=== PATIENT | female | born 1990 | race Caucasian/White ===

== ENCOUNTER 2017-03-08 01:57 | Emergency (ER) | payer BC, OTHER ==
[2017-03-08 02:11] VITALS: BP 122/75
--- NOTE | 2017-03-08 02:20 | ERNOTE ---
ENT HPI Time Seen by Provider: 03/08/17 02:16 Source: patient Exam Limitations: no limitations - Immun/Allergies/Home Medications Immunizations: IMMUNIZATION HX Immunizations Up to Date Yes Allergies/Adverse Reactions: Allergies Allergy/AdvReac Type Severity Reaction Status Date / Time Sulfa (Sulfonamide Allergy Verified 03/08/17 02:10 Antibiotics) [Sulfa(Sulfonamide Antibiotics)] Home Medications: HOME MEDICATIONS Ibuprofen [Motrin] 800 mg PO TID PRN #30 tablet 03/08/17 [Last Taken Unknown] Penicillin V Potassium [Pen-Vee K] 500 mg PO QID #40 tab 03/08/17 [Last Taken Unknown] - History of Present Illness Narrative: Patient has had a fractured tooth for 7 days. Patient has not taken the liberty to go see a dentist for this. Patient presents tonight for toothache and she wants a note for off work. Review of Systems - Review of Systems Constitutional: Present: no symptoms reported EYE: Present: no symptoms reported ENT: Present: See HPI Respiratory: Present: no symptoms reported Cardiology: Present: no symptoms reported Gastrointestinal/Abdominal: Present: no symptoms reported Genitourinary: Present: no symptoms reported - Patient's Past Medical History Patient History - Cardiac/Respiratory: No pertinent hx Patient History - Cancer: No Hx of Cancer Patient History - Surgical Procedures: No surgical history - Social History Living Situations: home Smoking Status: Current every day smoker Patient requests Smoking Cessation Consult: No Initiate information on Smoking Cessation: No Alcohol Use: occasionally Drug Use: none - Immunizations Immunizations Up to Date: Yes Physical Exam - Physical Exam General Appearance: Present: wd/wn, alert, no apparent distress Ears, Nose, Throat: Present: normal pharynx, other - patient does have very poor dentition she does have fracture of tooth #1 with 8 eroded down to below the gingival margin there is some surrounding gingival inflammation. Neck: Present: normal inspection Respiratory: Present: no respiratory distress, normal breath sounds Cardiovascular/Chest: Present: regular rate, rhythm, no murmur, normal peripheral pulses ED Progress - Vital Signs Patient's Vital Signs:: I have reviewed the patient's vital signs. Vital Signs: Vital Signs 03/08/17 03/08/17 01:57 02:06 Temperature 36.7 C Pulse Rate 88 Respiratory 18 Rate Blood Pressure 113/79 122/75 O2 Sat by Pulse 97 Oximetry - Progress/Reassessment Chief Complaint: Dental Problem Plan - Plan Plan: This patient has a fractured tooth and poor dentition, she needs the assistance of the dentist. I have powered and urged the patient to follow up with a dentist as soon as possible Departure Clinical Impression: Pain, dental - Departure Condition: Stable Instructions: Dental Caries, Dental Care and Dentist Visits Prescriptions: Ibuprofen [Motrin] 800 mg PO TID PRN #30 tablet PRN Reason: Pain Penicillin V Potassium [Pen-Vee K] 500 mg PO QID #40 tab
[2017-03-08] MEDS ORDERED: KETOROLAC TROMETHAMINE 60 MG/2 ML VIAL IM ONE ×2 (02:21→02:23)
[2017-03-08] MEDS ORDERED: PENICILLIN V POTASSIUM 250 MG TABLET PO STA (02:22)
[2017-03-08] MEDS ORDERED: PENICILLIN V POTASSIUM 250 MG TABLET ONE (02:23)
--- OUTSIDE RECORDS SUMMARY | 2017-03-08 03:31 | XMS REPORT | Continuity of Care Document ---
:1990 Author Organization [facility] ([facility]) Address [address] [place] [address] Phone [phone] Care Team Providers Name Role Phone Unavailable Primary Care Provider Unavailable Source Comments This disclosure is being made pursuant to the Care Everywhere program, applicable federal and state laws, and may not contain all informaitonavailable regarding this patient.[facility] ([facility]) Active Allergies and Adverse Reactions Not on File Current Medications Not on file Active Problems Not on file Social History Tobacco Use Types Packs/Day Years Used Date Never Assessed Plan of Care Health Maintenance Due Date Last Done Comments Hepatitis B Vaccine (1 of 3 - Primary Series) 1988 Tdap Vaccine 1999 Cervical Cancer Screening 2006 Lipid Disorder Screening 2006 MMR Vaccine 2006 Td Vaccine 2006 Varicella Vaccine (1 of 2 - Adult - No Evidence of 2006 Immunity) Influenza Vaccine: Seasonal (#1) 05/25/2016 Results from Last 3 Months Not on file
== END 2017-03-08 02:35 | disposition home or self-care (01) ==
LOC: ER 01:57
DX: K08.89 Other specified disorders of teeth and supporting structures (principal)

== ENCOUNTER 2018-07-21 00:01 | Inpatient (IN) ==
[2018-07-21] MEDS ORDERED: DEXTROSE 5%-LACTATED RINGERS 1,000 ML IV PRN (00:05)
[2018-07-21] MEDS ORDERED: OXYTOCIN/DEXTROSE 5%-WATER 30 UNITS/500 ML BAG IV ONE ×2 (00:05→18:07)
[2018-07-21] MEDS ORDERED: ONDANSETRON HCL/PF 2 MG/ML VIAL IV PRN ×2 (00:05→14:42)
[2018-07-21] MEDS ORDERED: RINGER'S SOLUTION,LACTATED 1,000 ML IV ONE (00:05)
[2018-07-21] MEDS ORDERED: MISOPROSTOL 100 MCG TABLET VG PRN (00:05)
[2018-07-21 02:36] LABS: Cocaine Ur Negative (NEGATIVE); Urine Barbiturate Negative (NEGATIVE); Urine Benzodiazepines Negative (NEGATIVE); Urine Opiates Negative (NEGATIVE); Urine PCP Negative (NEGATIVE); Urine THC Negative (NEGATIVE)
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
--- NOTE | 2018-07-21 09:03 | PN ---
Progess Note - Interim Date: 07/21/18 Time: 09:01 Narrative: 07/21/18 09:01 Patient planning on going natural Vital signs stable. Pitocin at 12 mu/min. FHT: 135 baseline, reassuring Contractions q 2-3 min Cervix: 2/75/0 Impression: Intrauterine at 39 2/7 weeks elective induction of labor Plan: Continue present plan
--- NOTE | 2018-07-21 12:04 | PN ---
Progess Note - Interim Date: 07/21/18 Time: 12:03 Narrative: 07/21/18 12:03 AROM clear fluid Cvx 2/75/0 FHT reassuring Continue induction of labor
[2018-07-21] MEDS ORDERED: NALOXONE HCL 1 MG/1 ML SYRG IV PRN (14:42)
[2018-07-21] MEDS ORDERED: BUPIVACAINE HCL/0.9 % NACL/PF 250 ML EP PRN (14:42)
[2018-07-21] MEDS ORDERED: BUPIVACAINE HCL/PF 30 ML VIAL EP SCH (14:45)
--- NOTE | 2018-07-21 14:54 | ANES ---
Anesthesia Pre Procedure Eval Vitals/Labs: Last Vital Signs Temp 36.5 C 07/21/18 05:28 Pulse 83 07/21/18 05:28 Resp 16 07/21/18 05:28 BP 107/68 07/21/18 05:28 Pulse Ox 98 07/21/18 05:28 HOME MEDICATIONS acetaminophen 325 mg tablet 650 mg PO Q6H PRN tab 04/24/18 [Last Taken Unknown] vitamin-ferrous fumarate 28 mg iron-folic acid 800 mcg tablet 1 tab PO DAILY 04/24/18 [Last Taken Unknown] ferrous sulfate 325 mg (65 mg iron) tablet 325 mg PO DAILY tab 05/31/18 [Last Taken Unknown] Allergies/Adverse Reactions: Allergies Allergy/AdvReac Type Severity Reaction Status Date / Time Sulfa (Sulfonamide Allergy Severe swelling Verified 07/21/18 00:11 Antibiotics) [Sulfa(Sulfonamide Antibiotics)] - Planned Procedure Planned Procedure: Labor epidural Medication List Reviewed:: Yes Allergies Verified: Yes Medical History (Last Reviewed 07/21/18 @ 10:02 by Oscar Berumen DO) Anxiety Onset Date: Unknown Depression Onset Date: Unknown Abnormal Pap smear of cervix Onset Date: Unknown Carpal tunnel syndrome of right wrist Onset Date: Unknown Contusion of rib on right side Onset Date: 04/13/17 Elective Onset Date: ~2009 Fracture closed, carpal bone Onset Date: ~1999 Hernia Onset Date: Unknown Surgical History (Last Reviewed 07/21/18 @ 10:02 by Oscar Berumen DO) H/O reduction of closed fracture Onset Date: Unknown H/O umbilical hernia repair Onset Date: Unknown History of placement of ear tubes Onset Date: Unknown Hx of tonsillectomy Onset Date: Unknown S/P wrist surgery Onset Date: Unknown [place] teeth extracted Onset Date: ~2008 Family History (Last Reviewed 07/21/18 @ 10:02 by Oscar Berumen DO) Aunt Breast cancer Daughter Alive and well Father No known health problems Grandfather Suicide Grandfather Unknown cause of morbidity or mortality Grandmother Breast cancer Diabetes Grandmother Cancer Mother Hypertension Sister Anxiety Depression Uncle Diabetes Heart disease Hypertension Myocardial infarction Hyperlipemia - Anesthesia Assessment and Plan ASA Class: PS, II Anesthesia Type Plan: Epidural
--- NOTE | 2018-07-21 15:11 | ANES ---
Post Anesthesia Assessment - Vital Signs Vitals: Last Vital Signs Temp 36.8 C 07/21/18 15:08 Pulse 85 07/21/18 15:08 Resp 18 07/21/18 15:08 BP 132/83 07/21/18 15:08 Pulse Ox 99 07/21/18 15:08 Airway Patency: Normal - Mental Status Level Of Consciousness: Awake - N/V Assessment Nausea/Vomiting Presence: None Dehydration:: No
--- NOTE | 2018-07-21 15:11 | ANES ---
Anesthesia Procedure Note Procedure Note: ANESTHESIA PROCEDURE NOTE Date of Procedure: 07/21/2018. Time of procedure: 1500. Performed by: Reynaldo Shaw CRNA Fork Truck Driver: None. Preprocedure diagnosis: Active labor. Post procedure diagnosis: Same. Procedure: Insertion of labor epidural. Indications: The patient is a 27 -year-old female in active labor requesting labor epidural for pain management. Findings: See below. Details of the procedure: The patient was placed in a sitting position. DuraPrep as well as Betadine swabs X3 was applied to the patient's back. Patient was then draped in a sterile fashion. Lidocaine 1% was infiltrated to the skin and subcutaneous tissues at the level of the L3-4 interspace. The epidural space was identified using a 18-gauge Tuohy needle with loss-of- resistance technique. Epidural catheter was inserted to a depth of 10 centimeters at skin. Negative test dose was elicited using 3 mL of 1.5% preservative-free lidocaine plus epinephrine 1 200,000. The epidural catheter was then taped and secured in place. A loading dose of 8 mL of 0.25% preservative-free bupivacaine was administered to the epidural catheter after negative aspiration for blood and CSF. EBL: Minimal. Fluids: N/A. Specimen: N/A. Post procedure condition: The patient tolerated the procedure well. No complications were noted. Thank you for this consultation. Reynaldo Shaw CRNA
[2018-07-21] MEDS ORDERED: BISACODYL 10 MG SUPP.RECT RC PRN (18:07)
[2018-07-21] MEDS ORDERED: oxyCODONE HCL/ACETAMINOPHEN 1 TAB TABLET PO PRN ×2 (18:07)
[2018-07-21] MEDS ORDERED: BENZOCAINE/MENTHOL 81 SPRAY CAN TP PRN (18:07)
[2018-07-21] MEDS ORDERED: SENNOSIDES 8.6 MG TABLET PO PRN (18:07)
[2018-07-21] MEDS ORDERED: HYDROCORTISONE 30 APPL TUBE TP PRN (18:07)
[2018-07-21] MEDS ORDERED: GLYCERIN/WITCH HAZEL LEAF 40 APPL BOX TP PRN (18:07)
--- NOTE | 2018-07-21 18:10 | OR ---
Operative Report - Dictated Report Narrative: Spontaneous vaginal delivery of viable female at 1749 on 07/21/2018 with Apgars 8 and 9, weighing 2783 g in SANDRA position with tight nuchal cord 1. Cord clamping delayed approximately 1 minute Placenta delivered complete, intact, with three vessel cord Estimated blood loss: less than 50 ml Anesthesia: epidural Lacerations: None History for MU Definition: * The number of deliveries resulting in a live the patient experienced prior to current hospitalization * The previous delivery of live twins or any live multiple gestation is considered one live event. *If primagravida or nulliparous is documented select zero for the number of previous live births. Live Events: 1
[2018-07-21] MEDS: DOCUSATE SODIUM 100 MG CAPSULE PO SCH (21:48)
[2018-07-21] MEDS: FERROUS SULFATE 325 MG TABLET PO SCH (21:50)
[2018-07-22] MEDS: IBUPROFEN 800 MG TABLET PO PRN ×4 (02:44→23:31)
[2018-07-22] MEDS: FERROUS SULFATE 325 MG TABLET PO SCH (08:40)
[2018-07-22] MEDS: DOCUSATE SODIUM 100 MG CAPSULE PO SCH ×2 (08:40→21:40)
[2018-07-22] MEDS: PRENATAL VITS96/IRON FUM/FOLIC 1 TAB TABLET PO SCH (08:40)
--- NOTE | 2018-07-22 11:52 | PN ---
Subjective - Date and Time Seen Date: 07/22/18 Time: 11:49 Objective - Vitals Vitals: Last Vital Signs Temp 36.9 C 07/22/18 08:00 Pulse 89 07/22/18 08:00 Resp 18 07/22/18 08:00 BP 115/75 07/22/18 08:00 Pulse Ox 95 07/22/18 08:00 Patient denies complaints. Patient left hospital premise for short period time and came back in and was noted to have a funny odor on her clothing. She admitted to taking a hit off a joint and smoking a cigarette in the parking lot. Lochia wnl Abdomen - soft, nontender Uterus - firm, at umbilicus - 1 No calf tenderness Impression: day #1 - s/p spontaneous vaginal delivery. Tobacco and marijuana use. Plan: Continue routine care. Patient was counseled by me and by our OB transportation maintenance supervisor. UDS will be done on mother and baby and DHS notified if positive. Cauti Physician Documentation - Urinary Catheter Management Urethral ([place]) Date of Insertion: 07/21/18 Time of Insertion: 15:39 Assessment/Plan - Problems/Diagnosis (1) Elective induction of labor planned Problem: Acute
[2018-07-22 13:14] LABS: Cocaine Ur Negative (NEGATIVE); Urine Barbiturate Negative (NEGATIVE); Urine Benzodiazepines Negative (NEGATIVE); Urine Opiates Negative (NEGATIVE); Urine PCP Negative (NEGATIVE); Urine THC Positive (NEGATIVE)
[2018-07-23 09:46] VITALS: BP 132/72
--- NOTE | 2018-07-23 10:58 | PN ---
Subjective - Date and Time Seen Date: 07/23/18 Time: 10:56 Objective - Vitals Vitals: Last Vital Signs Temp 36.3 C 07/23/18 08:30 Pulse 74 07/23/18 08:30 Resp 20 07/23/18 08:30 BP 132/72 07/23/18 08:30 Pulse Ox 99 07/23/18 08:30 Patient denies complaints. Bottle feeding Lochia wnl Abdomen - soft, nontender Uterus - firm, at umbilicus - 2 No calf tenderness Impression: day #2 - s/p spontaneous vaginal delivery. Urine drug screen from yesterday positive. DHS seeing patient now. Plan: Routine discharge instructions. Follow-up with [facility] per their recommendations - Abnormal Lab Findings Abnormal Lab Findings: Abnormal Lab Results 07/22/18 Range/Units 12:45 Urine Marijuana (THC) Positive H (NEGATIVE) Cauti Physician Documentation - Urinary Catheter Management Urethral ([place]) Date of Insertion: 07/21/18 Time of Insertion: 15:39 Assessment/Plan - Problems/Diagnosis (1) Elective induction of labor planned Problem: Acute
[2018-07-23] MEDS: IBUPROFEN 800 MG TABLET PO PRN (11:16)
[2018-07-23] MEDS: FERROUS SULFATE 325 MG TABLET PO SCH (11:16)
[2018-07-23] MEDS: PRENATAL VITS96/IRON FUM/FOLIC 1 TAB TABLET PO SCH (11:17)
[2018-07-23] MEDS: DOCUSATE SODIUM 100 MG CAPSULE PO SCH (11:17)
== END 2018-07-23 14:15 | disposition home or self-care (01) | DRG 775 ==
LOC: OB 00:01
PROVIDERS: ADMIT Obstetrics & Gynecology; ATTEND Obstetrics & Gynecology
CPT/HCPCS: 59025; 80307; G0479

== ENCOUNTER 2020-03-20 09:38 | Inpatient (IN) ==
[2020-03-20] MEDS ORDERED: BUTORPHANOL TARTRATE 2 MG/ML VIAL IV PRN ×2 (09:41)
[2020-03-20] MEDS ORDERED: RINGER'S SOLUTION,LACTATED 1,000 ML IV PRN (09:41)
[2020-03-20] MEDS ORDERED: OXYTOCIN/DEXTROSE 5%-WATER 30 UNITS/500 ML BAG IV ONE ×2 (09:41→17:42)
[2020-03-20] MEDS ORDERED: ONDANSETRON 4 MG TAB.RAPDIS PO PRN (09:41)
[2020-03-20] MEDS ORDERED: RINGER'S SOLUTION,LACTATED 1,000 ML IV ONE (09:41)
[2020-03-20] MEDS ORDERED: LIDOCAINE HCL 50 ML VIAL PERI PRN (09:41)
[2020-03-20 10:29] LABS: Cocaine Ur Negative (NEGATIVE); Urine Barbiturate Negative (NEGATIVE); Urine Benzodiazepines Negative (NEGATIVE); Urine Opiates Negative (NEGATIVE); Urine PCP Negative (NEGATIVE); Urine THC Negative (NEGATIVE)
--- NOTE | 2020-03-20 11:39 | HP ---
Chief Complaint - Chief Complaint Date of Service: 03/20/20 Time of Service: 11:30 Chief Complaint: Labor induction History of Present Illness: 29 year old at 37w 0d who presented to the office today for an unscheduled visit due to decreased movement, a migraine and a lot of vaginal pressure. She denied vb or lof. Denied regular ctx. Medical History (Last Reviewed 03/20/20 @ 11:32 by Maryann Fernandez MD) Tobacco abuse (Chronic) Anemia affecting History of urinary tract infection Onset Date: Unknown Anxiety Onset Date: Unknown Depression Onset Date: Unknown has not been on meds for 3 years Abnormal Pap smear of cervix Onset Date: Unknown x 1 due to BV Carpal tunnel syndrome of right wrist Onset Date: Unknown Contusion of rib on right side Onset Date: 04/13/17 Elective Onset Date: ~2009 Fracture closed, carpal bone Onset Date: ~1999 left wrist Hernia Onset Date: Unknown at - umbilical Surgical History: Surgical History (Last Reviewed 03/20/20 @ 11:32 by Maryann Fernandez MD) Hx of adenoidectomy Onset Date: Unknown H/O reduction of closed fracture Onset Date: Unknown left wrist H/O umbilical hernia repair Onset Date: Unknown History of placement of ear tubes Onset Date: Unknown Hx of tonsillectomy Onset Date: Unknown S/P wrist surgery Onset Date: Unknown [place] teeth extracted Onset Date: ~2008 Family History: Family History (Last Reviewed 03/20/20 @ 11:32 by Maryann Fernandez MD) Aunt Breast cancer maternal Daughter Alive and well Father No known health problems Grandfather , maternal Suicide Grandfather , paternal Unknown cause of morbidity or mortality Grandmother , maternal Breast cancer Diabetes Grandmother , paternal Cancer Mother Hypertension Shingles Ovarian cyst Sister Anxiety all 3 sisters Depression 2 sisters with depression Uncle , maternal Diabetes Heart disease Hypertension Myocardial infarction Hyperlipemia Social History: (Last Reviewed 03/20/20 @ 11:32 by Maryann Fernandez MD) Social History: Marital status: Single number of children: 1 current occupational status: employed current occupation: [employer] Highest education level completed: high school graduate Service: No Tobacco: Smoking Status: Current every day smoker tobacco type: cigarettes Smoking cigarettes per day: 7 Alcohol: alcohol intake: former details: quit since finding out she was Substance Use: substance use type: marijuana, other details: last smoked begining of jun Dietary Habits: caffeine: No Exercise: Physical activity type: none Review Of Systems (GEN) - Review of Systems Generalized/Overall Review: Present: No Symptoms Reported Genitourinary: Present: Other - decreased movement, vaginal pressure Misc: All systems neg except as marked Immunizations: IMMUNIZATION HX Immunizations Up to Date Yes Allergies/Adverse Reactions: Allergies Allergy/AdvReac Type Severity Reaction Status Date / Time Sulfa (Sulfonamide Allergy Severe swelling Verified 03/20/20 10:28 Antibiotics) [Sulfa(Sulfonamide Antibiotics)] Home Medications: HOME MEDICATIONS vitamins no.121-iron 28 mg-folic acid 800 mcg tablet 1 tab PO DAILY tab 08/30/19 [Last Taken 03/19/20 14:00] ferrous sulfate 325 mg (65 mg iron) tablet 325 mg PO DAILY 01/16/20 [Last Taken 03/19/20 14:00] Exam - Exam Vital Signs: Vital Signs - Last Taken Temp 36.8 C 03/20/20 10:56 Pulse 97 03/20/20 10:56 Resp 16 03/20/20 10:56 BP 121/79 03/20/20 10:56 Pulse Ox 98 03/20/20 10:56 Constitutional: Present: Alert, Oriented x3, Cooperative ENT Exam: Present: hearing grossly normal Eye Exam: bilateral eye: normal inspection Neck: Present: normal inspection Back Exam: Present: normal inspection, no CVA tenderness Breasts: Present: Exam deferred Respiratory: Present: lungs clear, normal breath sounds, no respiratory distress Cardiovascular/Chest: Present: regular rate, rhythm Abdomen: Present: soft, nontender, nondistended /Rectal: Present: Other - 4/60/-1 AROM for clear fluid Extremity: Present: non-tender, no calf tenderness Skin Exam: Present: normal color, warm/dry, no cyanosis Appearance: Present: appropriate appearance, appropriate insight, neat, no memory impairment Eye contact: Present: cooperative, good eye contact, normal speech Thoughts: Present: normal thought pattern Diagnostic Studies: Laboratory Results Urine Opiates Screen Negative (NEGATIVE) 03/20/20 09:50 Barbiturate Screen Negative (NEGATIVE) 03/20/20 09:50 Ur Phencyclidine Scrn Negative (NEGATIVE) 03/20/20 09:50 Urine Amphetamine Negative (NEGATIVE) 03/20/20 09:50 U Benzodiazepines Scrn Negative (NEGATIVE) 03/20/20 09:50 Urine Cocaine Screen Negative (NEGATIVE) 03/20/20 09:50 Urine Marijuana (THC) Negative (NEGATIVE) 03/20/20 09:50 Blood Type AB Positive 03/20/20 09:55 Antibody Screen Negative 03/20/20 09:55 Assessment/Plan - Narrative Narrative: 29 year old at 37w 0d The patient presented to the office for decreased movement, vaginal pressure and a migraine. She was placed on the monitor in the office and was found to have variable decelerations, and minimal variability. For this reason, given that the patient is full term proceed with delivery. GBS negative: prophylaxis not indicated History of THC on initial drug screen: negative on admission to L&D FHT currently reactive and reassuring
--- NOTE | 2020-03-20 17:41 | OR ---
Operative Report - Dictated Report Narrative: Date: 03/20/2020 Time of delivery: 1725 Gender: female AGPARS: 07/03 weight: 2901 grams Procedure: Description of the procedure: The patient is a 29 year old at 37w 0d who underwent medical IOL due to NRFHT. She was started on pitocin and augmented with AROM. She progressed to complete dilation. She delivered a viable female infant in SANDRA presentation over an intact perineum. The shoulders delivered without difficulty followed by the rest of the . Cord clamping was delayed for 60 seconds. The cord was clamped and cut. Cord blood was collected. The placenta delivered by expression and appeared intact. EBL: 100 mL Complications: none Lacerations: none Specimens: cord blood History for Definition: * The number of deliveries resulting in a live the patient experienced prior to current hospitalization * The previous delivery of live twins or any live multiple gestation is considered one live event. *If primagravida or nulliparous is documented select zero for the number of prev ious live births. Live Events: 2
[2020-03-20] MEDS ORDERED: SENNOSIDES 8.6 MG TABLET PO PRN (17:42)
[2020-03-20] MEDS ORDERED: HYDROcodone/ACETAMINOPHEN 1 EACH TABLET PO PRN ×2 (17:42)
[2020-03-20] MEDS ORDERED: diphenhydrAMINE HCL 25 MG CAPSULE PO PRN (17:42)
[2020-03-20] MEDS ORDERED: GLYCERIN/WITCH HAZEL LEAF 40 APPL BOX TP PRN (17:42)
[2020-03-20] MEDS ORDERED: BENZOCAINE/MENTHOL 81 SPRAY CAN TP PRN (17:42)
[2020-03-20] MEDS ORDERED: BISACODYL 10 MG SUPP.RECT RC PRN (17:42)
[2020-03-20] MEDS ORDERED: HYDROCORTISONE 30 APPL TUBE TP PRN (17:42)
[2020-03-20] MEDS: IBUPROFEN 800 MG TABLET PO PRN (18:22)
[2020-03-20] MEDS: DOCUSATE SODIUM 100 MG CAPSULE PO SCH (21:17)
[2020-03-21] MEDS: IBUPROFEN 800 MG TABLET PO PRN ×3 (01:34→17:26)
[2020-03-21] MEDS: DOCUSATE SODIUM 100 MG CAPSULE PO SCH (08:13)
[2020-03-21] MEDS ORDERED: MEDROXYPROGESTERONE ACET 150 MG/ML SYRG IM ONE (08:41)
--- NOTE | 2020-03-21 08:41 | PN ---
Subjective - Date and Time Seen Date: 03/21/20 Time: 08:39 Subjective Narrative: Patient without complaints Objective Objective Narrative: See vital signs - Review of Systems Generalized/Overall Review: Reports: No Symptoms Reported Misc: All systems neg except as marked - Vitals Vitals: Last Vital Signs Temp 36.7 C 03/21/20 06:53 Pulse 91 03/21/20 06:53 Resp 18 03/21/20 06:53 BP 142/80 H 03/21/20 06:53 Pulse Ox 98 03/21/20 06:53 - Exam Constitutional: Present: Alert, Oriented x3, Cooperative, No distress ENT Exam: Present: hearing grossly normal Abdomen: Present: soft, nontender, nondistended - fundus is firm Extremity: Present: non-tender, no calf tenderness Skin Exam: Present: normal color, warm/dry, no cyanosis Appearance: Present: appropriate appearance, appropriate insight, neat Eye contact: Present: cooperative, good eye contact, normal speech Thoughts: Present: normal thought pattern Assessment/Plan Plan Narrative: PPD 1 s/p Doing well Discharge today Depo-Provera for contraception prior to discharge Follow-up in 6 weeks or sooner for any other concerns
[2020-03-21 15:24] VITALS: BP 130/82
== END 2020-03-21 17:50 | disposition home or self-care (01) | DRG 807 ==
LOC: OB 09:38
PROVIDERS: ADMIT Obstetrics & Gynecology; ATTEND Obstetrics & Gynecology
CPT/HCPCS: 59025; 80307; 86850